=== PATIENT | male | born 1990 | race Caucasian/White ===

== ENCOUNTER 2018-03-25 02:05 | Inpatient (IN) | payer MEDICAID, OTHER ==
[~2018-03-25] VITALS: Ht 175.3 cm; Wt 80.5 kg
[2018-03-25 04:28] LABS: BASOPHILS % (AUTO) 0.9 % (0.0-2.0); EOSINOPHILS % (AUTO) 3.2 % (1.0-6.0); HEMATOCRIT 43.1 % (41-53); LYMPHOCYTES # (AUTO) 2.4 K/uL (1.0-4.8); MEAN CORPUSCULAR HGB CONC 34.8 G/dL (31.0-37.0); MEAN CORPUSCULAR VOLUME 81 fL (80-100); MONOCYTES # (AUTO) 0.7 K/uL (0.1-1.0); MONOCYTES % (AUTO) 8.7 % (2.0-9.0); NEUTROPHILS # (AUTO) 4.7 K/uL (1.8-7.7); NEUTROPHILS % (AUTO) 58.2 % (40.0-70.0); PLATELET COUNT (AUTO) 229 K/uL (150-450); RED BLOOD CELL COUNT(AUTO) 5.35 MIL/uL (4.50-5.90); RED CELL DISTRIBUTION WIDTH 14.1 % (11.5-14.5)
[2018-03-25 04:42] LABS: ANION GAP 4 mmol/L (8-16); CALCIUM, TOTAL 8.5 mg/dL (8.8-10.5); CARBON DIOXIDE 33 mmol/L (22-29); CHLORIDE 103 mmol/L (98-107); CREATININE 0.83 mg/dL (0.60-1.30); GLOMERULAR FILTR. RATE CALC > 60 mL/min (>60); GLUCOSE,RANDOM 86 mg/dL (70-110); POTASSIUM 3.9 mmol/L (3.5-5.1); SODIUM SERUM 140 mmol/L (136-145); UREA NITROGEN, BLOOD 15 mg/dL (7-18)
[2018-03-25 04:47] LABS: ALANINE AMINOTRANSFERASE 40 U/L (12-78); ALBUMIN 4.1 g/dL (3.4-5.0); ALKALINE PHOSPHATASE 88 U/L (46-116); ASPARTATE AMINOTRANSFERASE 21 U/L (15-37); BILIRUBIN,TOTAL 0.4 mg/dL (0.1-1.0); TOTAL PROTEIN, SERUM 7.6 g/dL (6.4-8.2)
[2018-03-25 05:10] LABS: AMPHET/METH SCREEN,URINE NEGATIVE (NEGATIVE); BARBITURATE SCREEN, URINE NEGATIVE (NEGATIVE); BENZODIAZEPINES SCREEN,URINE NEGATIVE (NEGATIVE); CANNABINOID SCREEN,URINE NEGATIVE (NEGATIVE); COCAINE SCREEN,URINE NEGATIVE (NEGATIVE); METHADONE SCREEN, URINE NEGATIVE (NEGATIVE); OPIATE SCREEN,URINE NEGATIVE (NEGATIVE); PHENCYCLIDINE SCREEN,URINE NEGATIVE (NEGATIVE)
[2018-03-25] MEDS ORDERED: ZOLPIDEM TARTRATE 10 MG TABLET PO PRN (06:00)
[2018-03-25] MEDS ORDERED: HALOPERIDOL 5 MG TABLET PO PRN (06:00)
[2018-03-25] MEDS ORDERED: LORazepam 2 MG TABLET PO PRN (06:00)
[2018-03-26 08:01] LABS: HEMOGLOBIN A1C 5.4 % (4.5-6.2)
[2018-03-26 08:22] LABS: CHOL/HDL RATIO 2.9 (4.2-7.3); FREE T4 (FREE THYROXINE) 0.91 ng/dL (0.76-1.46); THYROID STIMULATING HORMONE 1.12 uIU/mL (0.36-3.74)
[2018-03-26] MEDS: ARIPiprazole 10 MG TABLET PO SCH (11:15)
[2018-03-27] MEDS: ARIPiprazole 10 MG TABLET PO SCH (09:08)
[2018-03-28] MEDS: ARIPiprazole 10 MG TABLET PO SCH (09:28)
[2018-03-28 16:00] VITALS: BP 108/62
[2018-03-29 08:06] VITALS: BP 138/82
[2018-03-29] MEDS: ARIPiprazole 10 MG TABLET PO SCH (08:23)
[2018-03-29 16:28] VITALS: BP 114/76
[2018-03-30] MEDS: ARIPiprazole 10 MG TABLET PO SCH (08:44)
[2018-03-30] MEDS ORDERED: ARIP10TA8 PO (09:51)
== END 2018-03-30 11:24 | disposition home or self-care (01) | DRG 750 ==
LOC: EMS 02:05 → B3A 15:51
PROVIDERS: ADMIT Psychiatry & Neurology Psychiatry; ATTEND Psychiatry & Neurology Psychiatry
DX: F20.9 Schizophrenia, unspecified (principal); R45.850 Homicidal ideations; Z59.0 Homelessness; Z28.21 Immunization not carried out because of patient refusal
CPT/HCPCS: 83036; 84439; 84443; 90686; G0480

== ENCOUNTER 2018-04-14 12:36 | Emergency (ER) | payer MEDICAID, OTHER ==
[~2018-04-14] VITALS: Ht 175.3 cm; Wt 81.8 kg
[~2018-04-14 12:36] MED LIST: ARIP10TA8 PO
[2018-04-14 12:41] VITALS: BP 107/71
== END 2018-04-14 14:20 | disposition home or self-care (01) ==
LOC: EMS 12:37
DX: F29 Unspecified psychosis not due to a substance or known physiological condition (principal)